=== PATIENT | male | born 1970 | race Caucasian/White ===

== ENCOUNTER 2018-05-31 09:39 | Emergency (ER) | payer BC, SELFPAY ==
[2018-05-31 09:44] VITALS: BP 148/92; PULSE 71; RESP 16; TEMP 37; O2SAT 99
--- NOTE | 2018-05-31 09:48 | DI.RAD_ITS ---
SYMPTOM/DIAGNOSIS: 800 LB DROPPED ON FOOT, PAIN RIGHT FOOT: Three views. No priors. There is a comminuted fracture of the distal aspect of the proximal phalanx of the right great toe. The fracture extends into the interphalangeal joint. There is posterior angulation of the distal fracture noted. There is also a comminuted, nondisplaced fracture involving the terminal tuft of the right great toe. There is a lucency seen in the medial aspect of the terminal tuft of the right third toe suspicious for a nondisplaced fracture. Please correlate with the patient's physical exam. There is soft tissue swelling of the great toe. No radiopaque foreign bodies are seen. IMPRESSION: 1. Comminuted, intra-articular displaced fracture involving the distal aspect of the proximal phalanx of the right great toe. 2. Nondisplaced comminuted fracture of the terminal tuft of the great toe.
--- NOTE | 2018-05-31 09:49 | W.ED.GENAD ---
Discharge Plan Disposition Patient Disposition: HOME Discharge Details Chief Complaint: Orthopedic Clinical Impression: Fracture of great toe, right, closed, Toes fractured Primary Care Provider: NONE,NONE ED Provider: Jurgen Tolbert Home Meds and New Rx's Prescriptions: No Action No Known Home Meds RF: 0 Discharge Instructions Instructions: Toe Fracture (ED) Additional Instructions: Use walking boot and crutches. Light weightbearing on foot as tolerated. Follow-up with Dr. Neff in his office on Sunday at 10 AM. Take ibuprofen and Tylenol for pain. Dose according to labels. Return to the ER for any worsening or new concerning symptoms. Referrals: Jay Neff DPM [[facility] STAFF PHYSICIAN] - Discharge Data Discharge Date/Time-TO BE ENTERED AT DEPARTURE: 05/31/18 12:11 Medical Decision Making 11:35 --48-year-old male here 1 day after forklift greater than 800 pounds fell on his right foot with tenderness to his dorsal foot and toes. Neurovascular intact distally. X-ray of the foot reviewed and interpreted by radiology: Fracture of his proximal phalanx with displacement first toe, tuft fracture of the first toe as well as third digit. I called and spoke with Dr. Neff who evaluated the patient and recommends cam boot and outpatient follow-up on Sunday. HPI General Mode of arrival: ambulatory. Date/Time Provider Initiated Documentation: 05/31/18 09:48. Limitations to Documentation: no limitations. Information obtained by: patient. HPI Narrative: 48-year-old male with history of MS here 1 day after 800 pound forklift dropped on his right foot. Chief complaint is foot pain. Pain is severe and localized to the top of his foot and toes. Worse with ambulation. No associated numbness or tingling. Patient is requesting orthopedic splint. Related Data Home Medications Medication Instructions Recorded Confirmed Unknown [No Known Home Meds] 05/31/18 05/31/18 Allergies Allergy/AdvReac Type Severity Reaction Status Date / Time Penicillins Allergy Unknown Unverified 05/31/18 09:55 Review of Systems Musculoskeletal Reports as per HPI and Denies numbness Neurologic Denies numbness PFSH Family History Mother No problems noted. Father No problems noted. Sister No problems noted. Sister No problems noted. Brother No problems noted. Brother No problems noted. Brother No problems noted. Grandfather Heart disease Grandfather No problems noted. Grandmother Asthma Grandmother No problems noted. Medical History Multiple sclerosis Social History Smoking/Tobacco Use Status: Never Surgical History Repair of inguinal hernia Exam Const General: cooperative, healthy appearing and comfortable Neuro General: alert, awake and other (distal RLE sensation and motor intact) Extrem Right lower extremity: foot (swelling and tenderness dorsal foot with echymosis ) Details: vascular exam Details: dorsalis pedis pulse present
== END 2018-05-31 12:11 | disposition home or self-care (01) ==
PROVIDERS: Emergency Provider Student in an Organized Health Care Education/Training Program
DX: S97.111A Crushing injury of right great toe, initial encounter (principal); S92.411A Displaced fracture of proximal phalanx of right great toe, initial encounter for closed fracture; W31.82XA Contact with other commercial machinery, initial encounter
CPT/HCPCS: 28490; 73630

== ENCOUNTER 2019-03-19 14:44 | Outpatient (CLI) | payer BC, SELFPAY ==
--- NOTE | 2019-03-19 14:23 | DI.RAD_ITS ---
SYMPTOMS/DIAGNOSIS: BILATERAL KNEE PAIN LEFT KNEE: Three views were obtained. No bony or soft tissue abnormality seen. RIGHT KNEE: Three views were obtained. No bony or soft tissue abnormality seen.
== END 2019-03-19 15:04 ==
PROVIDERS: Visit Provider Physician Assistant
DX: M25.561 Pain in right knee (principal); M25.562 Pain in left knee
CPT/HCPCS: 73562; 73564